=== PATIENT | female | born 1980 | race Caucasian/White ===

== ENCOUNTER → 2016-06-16 | Outpatient (CLI) | payer BC ==
--- NOTE | 2016-06-16 16:53 | MR ---
EXAM DATE: 06/16/16 PATIENT'S AGE: 36 Patient: KOFI BRANHAM Facility: [place], [place] : 1980 Study: MRI Shoulder Right [id number]/9/2017 12:41:15 PM Ordering Physician: Bart Carr Final Report: Indication: Right shoulder pain. Technique: Routine non contrast MRI of the right shoulder. Findings: Rotator cuff: Mild distal supraspinatus tendinosis. No significant distal tendon tearing. No supraspinatus muscle atrophy. The distal infraspinatus tendon is intact. . Infraspinatus muscle mass is maintained. Distal teres minor tendon is intact. Teres minor muscle mass is maintained. The distal subscapularis tendon is intact. Subscapularis muscle mass is maintained. . AC joint and coracoacromial arch: Mild AC joint degenerative arthrosis. No AC joint widening or malalignment. Coracoclavicular ligament is intact. Lateral downward sloping of the acromion. Type 1 acromial morphology. No os acromiale. No significant subacromial spurring. Coracoacromial ligament thickness is within normal limits. The acromiohumeral interval measures approximately 8 mm. There is no subacromial-subdeltoid bursal fluid collection. The subcoracoid interval is adequately patent. No subcoracoid bursal fluid collection. . Biceps-labral complex: The long head of biceps tendon is intact. There is no subluxation or dislocation of the tendon from the bicipital groove. The superior labrum is intact without SLAP tear. The labrum below the level of the equator appears intact. No definite Bankart or Bankart variant labral tear. . Glenohumeral joint space: Physiologic quantity of joint fluid. No focal articular cartilage defect. No capsular edema or significant malalignment. . Bones and soft tissues: No acute fracture. No avascular necrosis. No abnormality within the suprascapular or spinoglenoid notches nor within the quadrilateral space. Impression: 1. Mild distal supraspinatus tendinosis, right shoulder. No significant tearing of rotator cuff tendons. 2. Mild AC joint degenerative arthrosis. 3. The glenohumeral joint space is maintained. 4. No bursitis. Dictated by Vinod Doss MD @ Jun 16 2016 2:41PM (Electronic Signature) Report Signed by Proxy and Original Signed Document filed in the Medical Record. RISSA
== END ==
LOC: MW.MRI 11:06
PROVIDERS: ATTEND Neurological Surgery
DX: M19.90 Unspecified osteoarthritis, unspecified site (principal); M25.511 Pain in right shoulder
CPT/HCPCS: 73221-26-RT; 73221-RT

== ENCOUNTER 2017-01-24 05:29 | Emergency (ER) | payer BC ==
[2017-01-24] MEDS ORDERED: Sodium Chloride 0.9% 1,000 ML IV SCH (05:45)
[2017-01-24 06:24] LABS: ACETAMINOPHEN < 3.0 ug/mL; CHLORIDE,CL 108 mmol/L (98-110); SODIUM,NA 139 mmol/L (136-146)
--- NOTE | 2017-01-24 07:31 | EDM.PDOC ---
ED HPI GENERAL MEDICAL PROBLEM - General Chief Complaint: Behavioral/Psych Stated Complaint: AMBULANCE Time Seen by Provider: 01/24/17 07:21 - History of Present Illness INITIAL COMMENTS - FREE TEXT/NARRATIVE: HISTORY AND PHYSICAL: History of present illness: Patient 37-year-old female presents status post reported overdose involving Motrin and alcohol there was no other concerns reported no other ingestions reported. Review of systems: As per history of present illness and below otherwise all systems reviewed and negative. Past medical history: As per history of present illness and as reviewed below otherwise noncontributory. Surgical history: As per history of present illness and as reviewed below otherwise noncontributory. Social history: No reported history of drug or alcohol abuse. Family history: As per history of present illness and as reviewed below otherwise noncontributory. Physical exam: HEENT: Atraumatic, normocephalic, pupils reactive, negative for conjunctival pallor or scleral icterus, mucous membranes moist, throat clear, neck supple, nontender, trachea midline. Lungs: Clear to auscultation, breath sounds equal bilaterally, chest nontender. Heart: S1S2, regular, negative for clicks, rubs, or JVD. Abdomen: Soft, nondistended, nontender. Negative for masses or hepatosplenomegaly. Negative for costovertebral tenderness. Pelvis: Stable nontender. Genitourinary: Deferred. Rectal: Deferred. Extremities: Atraumatic, negative for cords or calf pain. Neurovascular unremarkable. Neuro: Somnolent follows commands moves all extremities limited but grossly nonfocal exam Diagnostics: CBC CMP hCG urine drug screen aspirin Tylenol level EKG chest x-ray Therapeutics: IV O2 monitor Impression: #1 depressive episode with nonlethal overdose Definitive disposition and diagnosis as appropriate pending reevaluation and review of above. - Related Data Allergies Allergy/AdvReac Type Severity Reaction Status Date / Time codeine Allergy Airway Verified 01/06/16 14:59 Tightness Home Meds: Home Meds Mag Hydrox/Al Hydrox/Simeth [Maalox Maximum Strength Susp] 355 ml PO DAILY PRN # 1 bottle 01/06/16 [Rx] Omeprazole 20 mg PO BIDAC #40 cap.cr 01/06/16 [Rx] Ranitidine [Zantac] 01/06/16 [History] Past Medical History HEENT History: Reports: None Cardiovascular History: Reports: None Respiratory History: Reports: Asthma Gastrointestinal History: Reports: GERD [employer] History: Reports: Musculoskeletal History: Reports: None Neurological History: Reports: None Psychiatric History: Reports: Anxiety Endocrine/Metabolic History: Reports: None - Infectious Disease History Infectious Disease History: Reports: Chicken Pox - Past Surgical History GI Surgical History: Reports: Appendectomy, Cholecystectomy Female Surgical History: Reports: Tubal Ligation Social & Family History - Family History Family Medical History: Noncontributory - Tobacco Use Smoking Status *Q: Current Every Day Smoker Years of Tobacco use: 5 Packs/Tins Daily: 0.5 Second Hand Smoke Exposure: Yes - Alcohol Use Days Per Week of Alcohol Use: 7 Number of Drinks Per Day: 3 Total Drinks Per Week: 21 - Recreational Drug Use Recreational Drug Use: No ED ROS GENERAL - Review of Systems Review Of Systems: ROS reveals no pertinent complaints other than HPI. ED EXAM, GENERAL - Physical Exam Exam: See Below (See dictation) Course - Vital Signs Last Recorded V/S: Last Vital Signs Temp 36.4 C 01/24/17 09:11 Pulse 83 01/24/17 09:11 Resp 18 01/24/17 09:11 BP 118/63 01/24/17 09:11 Pulse Ox 99 01/24/17 09:11 - Orders/Labs/Meds Orders: Active Orders 24 hr Category Date Time Status EKG Documentation Completion [RC] STAT Care 01/24/17 05:40 Active Chest 1V Frontal [CR] Stat Exams 01/24/17 05:40 Taken Sodium Chloride 0.9% [Normal Saline] 1,000 ml Med 01/24/17 05:45 Active IV ASDIRECTED Medication Orders Sodium Chloride (Normal Saline) 1,000 mls @ 999 mls/hr IV ASDIRECTED APOLONIA Last Admin: 01/24/17 06:04 Dose: 999 mls/hr Labs: Laboratory Tests 01/24/17 01/24/17 01/24/17 Range/Units 05:50 05:50 05:59 WBC 11.59 H (4.0-11.0) K/uL RBC 4.08 L (4.30-5.90) M/uL Hgb 13.5 (12.0-16.0) g/dL Hct 38.7 (36.0-46.0) % MCV 94.9 (80.0-98.0) fL MCH 33.1 H (27.0-32.0) pg MCHC 34.9 (31.0-37.0) g/dL RDW Std Deviation 46.9 (28.0-62.0) fl RDW Coeff of Alvino 14 (11.0-15.0) % Plt Count 252 (150-400) K/uL MPV 10.20 (7.40-12.00) fL Neut % (Auto) 67.9 (48.0-80.0) % Lymph % (Auto) 20.4 (16.0-40.0) % Thayer % (Auto) 7.3 (0.0-15.0) % Eos % (Auto) 3.9 (0.0-7.0) % Baso % (Auto) 0.5 (0.0-1.5) % Neut # (Auto) 7.9 H (1.4-5.7) K/uL Lymph # (Auto) 2.4 (0.6-2.4) K/uL Thayer # (Auto) 0.9 H (0.0-0.8) K/uL Eos # (Auto) 0.5 (0.0-0.7) K/uL Baso # (Auto) 0.1 (0.0-0.1) K/uL Nucleated RBC % 0.0 /100WBC Nucleated RBCs # 0 K/uL Sodium 139 (136-146) mmol/L Potassium 3.2 L (3.5-5.1) mmol/L Chloride 108 (98-110) mmol/L Carbon Dioxide 20 L (21-31) mmol/L BUN 8 (6.0-23.0) mg/dL Creatinine 0.7 (0.6-1.5) mg/dL Est Cr Clr Drug Dosing TNP Estimated GFR (MDRD) > 60.0 ml/min Glucose 107 (60-110) mg/dL Calcium 8.6 L (8.8-10.8) mg/dL Total Bilirubin 0.2 (0.1-1.5) mg/dL AST 60 H (5-40) IU/L ALT 57 H (8-54) IU/L Alkaline Phosphatase 114 (40-150) Total Protein 7.1 (6.0-8.0) g/dL Albumin 3.9 (3.5-5.0) g/dL Globulin 3.2 (2.0-3.5) g/dL Albumin/Globulin Ratio 1.2 L (1.3-2.8) Urine HCG, Qual (NEGATIVE) Salicylates < 5.0 (0-20) mg/dL Urine Opiates Screen NEGATIVE (NEGATIVE) Ur Oxycodone Screen NEGATIVE (NEGATIVE) Urine Methadone Screen NEGATIVE (NEGATIVE) Acetaminophen < 3.0 ug/mL Ur Barbiturates Screen NEGATIVE (NEGATIVE) Ur Phencyclidine Scrn NEGATIVE (NEGATIVE) Ur Amphetamine Screen NEGATIVE (NEGATIVE) U Methamphetamines Scrn NEGATIVE (NEGATIVE) U Benzodiazepines Scrn NEGATIVE (NEGATIVE) U Cocaine Metab Screen NEGATIVE (NEGATIVE) U Marijuana (THC) Screen NEGATIVE (NEGATIVE) Ethyl Alcohol 212.7 mg/dL 01/24/17 Range/Units 05:59 WBC (4.0-11.0) K/uL RBC (4.30-5.90) M/uL Hgb (12.0-16.0) g/dL Hct (36.0-46.0) % MCV (80.0-98.0) fL MCH (27.0-32.0) pg MCHC (31.0-37.0) g/dL RDW Std Deviation (28.0-62.0) fl RDW Coeff of Alvino (11.0-15.0) % Plt Count (150-400) K/uL MPV (7.40-12.00) fL Neut % (Auto) (48.0-80.0) % Lymph % (Auto) (16.0-40.0) % Thayer % (Auto) (0.0-15.0) % Eos % (Auto) (0.0-7.0) % Baso % (Auto) (0.0-1.5) % Neut # (Auto) (1.4-5.7) K/uL Lymph # (Auto) (0.6-2.4) K/uL Thayer # (Auto) (0.0-0.8) K/uL Eos # (Auto) (0.0-0.7) K/uL Baso # (Auto) (0.0-0.1) K/uL Nucleated RBC % /100WBC Nucleated RBCs # K/uL Sodium (136-146) mmol/L Potassium (3.5-5.1) mmol/L Chloride (98-110) mmol/L Carbon Dioxide (21-31) mmol/L BUN (6.0-23.0) mg/dL Creatinine (0.6-1.5) mg/dL Est Cr Clr Drug Dosing Estimated GFR (MDRD) ml/min Glucose (60-110) mg/dL Calcium (8.8-10.8) mg/dL Total Bilirubin (0.1-1.5) mg/dL AST (5-40) IU/L ALT (8-54) IU/L Alkaline Phosphatase (40-150) Total Protein (6.0-8.0) g/dL Albumin (3.5-5.0) g/dL Globulin (2.0-3.5) g/dL Albumin/Globulin Ratio (1.3-2.8) Urine HCG, Qual NEGATIVE (NEGATIVE) Salicylates (0-20) mg/dL Urine Opiates Screen (NEGATIVE) Ur Oxycodone Screen (NEGATIVE) Urine Methadone Screen (NEGATIVE) Acetaminophen ug/mL Ur Barbiturates Screen (NEGATIVE) Ur Phencyclidine Scrn (NEGATIVE) Ur Amphetamine Screen (NEGATIVE) U Methamphetamines Scrn (NEGATIVE) U Benzodiazepines Scrn (NEGATIVE) U Cocaine Metab Screen (NEGATIVE) U Marijuana (THC) Screen (NEGATIVE) Ethyl Alcohol mg/dL Meds: Medications Generic Name Dose Route Start Last Admin Trade Name Freq PRN Reason Stop Dose Admin Sodium Chloride 1,000 mls @ 999 mls/hr 01/24/17 05:45 01/24/17 06:04 Normal Saline IV 999 mls/hr ASDIRECTED APOLONIA Administration Departure - Departure Time of Disposition: 09:31 Disposition: DC/Tfer to Psych Hosp/Unit 65 Condition: Good Clinical Impression: Depressive disorder, Alcohol abuse, Overdose - Discharge Information Referrals: PCP,None [Primary Care Provider] - Forms: ED Department Discharge - My Orders Last 24 Hours: My Active Orders 01/24/17 05:40 EKG Documentation Completion [RC] STAT Chest 1V Frontal [CR] Stat 01/24/17 05:45 Sodium Chloride 0.9% [Normal Saline] 1,000 ml IV ASDIRECTED - Assessment/Plan Last 24 Hours: My Active Orders 01/24/17 05:40 EKG Documentation Completion [RC] STAT Chest 1V Frontal [CR] Stat 01/24/17 05:45 Sodium Chloride 0.9% [Normal Saline] 1,000 ml IV ASDIRECTED
[2017-01-24 10:18] VITALS: BP 113/62
--- NOTE | 2017-01-24 11:05 | CR ---
EXAM DATE: 01/24/17 PATIENT'S AGE: 37 Patient: KOFI BRANHAM Facility: [place], [place] Site . Site : 1980 Study: XRay Chest [id number]/17/2017 6:31:59 AM Ordering Physician: Doctor Dominguez Final Report: INDICATION: overdose COMPARISON: Chest x-ray dated 06 January 2016. FINDINGS: A single portable chest x-ray shows a normal cardiac silhouette. The lungs are hypoventilated and show mild interstitial prominence. Sharp pleural margins. No pneumothorax. IMPRESSION: Hypoventilated lungs with mild interstitial prominence may represent mild pulmonary edema. Dictated by Jadiel Siegel MD @ 01/24/2017 6:34:28 AM Dictated by: Jadiel Siegel MD @ 01/24/2017 06:34:37 (Electronic Signature) Report Signed by Proxy. [facility]
== END 2017-01-24 10:10 ==
LOC: MW.ED 05:29
DX: T39.311A Poisoning by propionic acid derivatives, accidental (unintentional), initial encounter (principal); F32.9 Major depressive disorder, single episode, unspecified; F10.10 Alcohol abuse, uncomplicated; F17.210 Nicotine dependence, cigarettes, uncomplicated; K21.9 Gastro-esophageal reflux disease without esophagitis; Z88.5 Allergy status to narcotic agent; Z90.49 Acquired absence of other specified parts of digestive tract; Z98.51 Tubal ligation status
CPT/HCPCS: 36415; 71010; 80053; 80305; 81025; 85025; 93005; 96360; 99285; G0480; J7040; 99283